=== PATIENT | male | born 2000 | race Two or more races ===

== ENCOUNTER 2024-02-02 19:57 | Emergency (ER) | payer BC, MEDICAID ==
[~2024-02-02] VITALS: Ht 175.3 cm; Wt 73.0 kg
--- NOTE | 2024-02-02 20:15 | ED.PDOC ---
Eye-HPI HPI Comments This is a 23-year-old male presents to the ED chief complaint flu-like symptoms times 24 hours. Patient complaining of nausea, vomiting, weakness, and diarrhea. Patient reports symptoms started yesterday states difficulty to keep fluids down, notes decrease in appetite. Denies any recent travel notes no ill contacts. Denies chest pain, difficulty breathing, shortness of breath, or abdominal pain. Chief Complaint: Nausea/Vomiting Time Seen by MD: 19:59 Reviewed Notes: Nurses Notes, Medications, Allergies Allergies: Coded Allergies: NO KNOWN ALLERGIES (Unverified , 02/02/24) Information Source: Relative (Mother) Past Medical History Immunizations: Current Medical History: Denies Operations: Denies Family History Family History: Reviewed,noncontributory to illness Social History Smoking: Non-Smoker Alcohol: Denies ETOH Use Drugs: Denies Drug Use Constitutional: reports: chills, weakness; denies: diaphoresis, fatigue, fever, malaise, sweats, others EENTM: denies: blurred vision, double vision, ear bleeding, ear discharge, ear drainage, ear pain, ear ringing, eye pain, eye redness, hearing loss, mouth pain, mouth swelling, nasal discharge, nose bleeding, nose congestion, nose pain, photophobia, tearing, throat pain, throat swelling, voice changes, others Respiratory: denies: cough, hemoptysis, orthopnea, SOB at rest, shortness of breath, SOB with excertion, stridor, wheezing, others Cardiovascular: denies: chest pain, dizzy spells, diaphoresis, Dyspnea on exertion, edema, irregular heart beat, left arm pain, lightheadedness, palpi tations, PND, syncope, others Gastrointestinal: reports: diarrhea, nausea, vomiting; denies: abdomen distended, abdominal pain, blood streaked bowels, constipated, dysphagia, difficulty swallowing, hematemesis, melena, poor appetite, poor fluid intake, rectal bleeding, rectal pain, others Genitourinary: denies: burning, dysuria, flank pain, frequency, hematuria, incontinence, penile discharge, penile sore, pain, testicle pain, testicle swelling, urgency, others Neurological: denies: dizziness, fainting, headache, left sided numbness, left sided weakness, numbness, paresthesia, pre-existing deficit, right sided numbness, right sided weakness, seizure, speech problems, tingling, tremors, weakness, others Musculoskeletal: denies: back pain, gout, joint pain, joint swelling, muscle pain, muscle stiffness, neck pain, others Integumetry: denies: bruises, change in color, change in hair/nails, dryness, laceration, lesions, lumps, rash, wounds, others Allergic/Immunocompromised: denies: Difficulty Healing, Frequent Infections, Hives, Itching, others Hematologic/Lymphatic: denies: anemia, blood clots, easy bleeding, easy bruising, swollen glands, others Endocrine: denies: excessive hunger, excessive sweating, excessive thirst, excessive urination, flushing, intolerance to cold, intolerance to heat, unexplained weight gain, unexplained weight loss, others Psychiatric: denies: anxiety, bipolar disorder, depression, hopeless, panic disorder, schizophrenia, sleepless, suicidal, others Physical Exam General Appearance: No Apparent Distress, Normal HEENT: Normal ENT Inspection, Pharynx Normal Neck: Full Range of Motion, Non-Tender Respiratory: Accessory Muscle Use, Chest Non-Tender, Lungs Clear, No Respiratory Distress, Normal Breath Sounds Cardiovascular: No Murmur, Normal Peripheral Pulses, Regular Rate/Rhythm Breast Exam: Deferred Gastrointestinal: No Organomegaly, Non Tender, No Pulsatile Mass, Normal Bowel Sounds, Soft Genitalia: Deferred Pelvic: Deferred Rectal: Deferred Extremities: Normal capillary refill, Normal inspection, Normal range of motion, Non-tender, No pedal edema Musculoskeletal : Apperance: Normal Neurologic: Alert, telex operator II-XII nml as Tested, No Motor Deficits, Normal Affect, Normal Mood, No Sensory Deficits Cerebellar Function: Normal Reflexes: Normal Skin: Dry, Normal Color, Warm Lymphatic: No Adenopathy Was a procedure done? Was a procedure done?: No EENT DIFF Eye: N/A Other Differential Diagnosis Influenza a and B. gastroenteritis X-Ray, Labs, Meds, VS Vital Signs Date Time Temp Pulse Resp B/P (MAP) Pulse Ox O2 Delivery O2 Flow Rate FiO2 02/02/24 20:35 95 24 96 Room Air 02/02/24 20:02 97.5 95 16 120/76 (91) 99 Lab Test 02/02/24 20:10 Range/Units Influenza Type A Antigen Negative Negative Influenza Type B Antigen Negative Negative Current Medications Medications (Trade) Dose Ordered Sig/Fili Route Start Time Stop Time Status Last Admin Sodium Chloride 1,000 ml @ 1,000 mls/hr Q1H ONCE IV 02/02/24 20:00 02/02/24 20:59 DC 02/02/24 20:25 Famotidine (Pepcid Injection) 20 mg ONCE ONCE IV 02/02/24 20:00 02/02/24 20:02 DC 02/02/24 20:39 Ondansetron HCl (Zofran) 4 mg ONCE ONCE IV 02/02/24 20:00 02/02/24 20:02 DC 02/02/24 20:39 Loperamide HCl (Imodium Capsule) 4 mg ONCE ONCE PO 02/02/24 20:00 02/02/24 20:02 DC 02/02/24 20:32 Flu swabs shows IV started normal saline bolus, 4 mg of Zofran, 20 mg of Pepcid IV, and Imodium 4 mg p.o.. X-Ray, Labs, Meds, VS Comment Influenza a and B negative. Patient reports improvement requesting discharge at this time. Patient was given 1 L bolus of normal saline, 20 mg of Pepcid IV push, and Zofran 4 mg IV push, and Imodium 4 mg p.o.. We will script Pepcid and Zofran for outpatient treatment. Advised to rest increase p.o. fluids with electrolytes. ER return precautions given. Follow up with PCP in 2-3 days as necessary. Patient agrees with discharge plan of care. Time of 1ST Reevaluation: 21:11 Reevaluation 1ST: Improved Patient Education/Counseling: Diagnosis, Treatment, Prognosis, Need For Follow Up Family Education/Counseling: Diagnosis, Treatment, Prognosis, Need For Follow Up Departure 1 Departure Time of Disposition: 21:11 Impression: Primary Impression: Gastroenteritis Disposition: 01 HOME / SELF CARE / HOMELESS Condition: Stable e-Prescriptions Famotidine (PEPCID TABLET) 20 Mg Tb 1 TAB PO BID for 3 Days, #6 TAB Prov: KATHY NEUMANN 02/02/24 Ondansetron Odt 4MG Tab (ZOFRAN PO) 4 Mg Tb 4 MG PO TID PRN for 3 Days, #9 TAB ODT TAB-DISSOLVE IN MOUTH, THEN SWALLOW Prov: KATHY NEUMANN 02/02/24 Discharged With: Self Critical Care Note Critical Care Time?: No Stability Stability form required: KATHY Rob [facility] Feb 02, 2024 20:15
[2024-02-02] MEDS: SODIUM CHLORIDE 0.9% 1,000 ML IV ONE (20:25)
[2024-02-02] MEDS: LOPERAMIDE HCL 2 MG CAP/TAB PO ONE (20:32)
[2024-02-02] MEDS: ONDANSETRON HCL 4 MG/2 ML VIAL IV ONE (20:39)
[2024-02-02] MEDS: FAMOTIDINE (10MG/ML) 2ML VL IV ONE (20:39)
[2024-02-02 21:04] LABS: Rapid Influenza A Negative (Negative); Rapid Influenza B Negative (Negative)
[2024-02-02] MEDS ORDERED: FAMO20TA10 PO (21:13)
[2024-02-02] MEDS ORDERED: ZOFR4T PO (21:13)
[2024-02-02 21:32] VITALS: BP 104/61; PULSE 94; RESP 18; TEMP 98.3; O2SAT 98
== END 2024-02-02 21:47 | disposition home or self-care (01) ==
LOC: ER 19:57
DX: K52.9 Noninfective gastroenteritis and colitis, unspecified (principal); Z20.822 Contact with and (suspected) exposure to COVID-19
CPT/HCPCS: 87804; 96361; 96374; 96375; 99284; J2405; J3490; J7030